=== PATIENT | female | born 1945 | race Caucasian/White ===

== ENCOUNTER 2023-01-09 11:03 | Inpatient (IN) | payer OTHER, BC ==
[~2023-01-09] VITALS: Ht 149.9 cm; Wt 63.5 kg
--- NOTE | 2023-01-09 11:03 | NUR ---
BIBA TAKEN TO BED 2
[2023-01-09 11:14] VITALS: BP 140/103
[2023-01-09] MEDS ORDERED: methylPREDNISolone SS 125 MG/2 ML VIAL IVP ONE (11:55)
[2023-01-09] MEDS ORDERED: ALBUTEROL 0.083% 2.5 MG/3 ML NEBU INH ONE ×2 (11:55→14:45)
[2023-01-09] MEDS ORDERED: IPRATROPIUM 0.02% 0.5 MG/2.5 ML NEBU INH ONE (11:55)
[2023-01-09 12:52] LABS: BASOPHILS % (AUTO) 0.1 % (0.0-2.0); EOSINOPHILS % (AUTO) 0.3 % (0.0-4.0); HEMATOCRIT 40.1 % (36-48); HEMOGLOBIN 13.4 g/dL (12.0-16.0); LYMPHOCYTES # (AUTO) 1.3 K/uL (2.5-16.5); LYMPHOCYTES % (AUTO) 8.7 % (20.5-51.1); MEAN CORPUSCULAR HEMOGLOBIN 31 pg (27-31); MEAN CORPUSCULAR HGB CONC 33 g/dL (33-37); MEAN CORPUSCULAR VOLUME 93.1 fL (80-94); MONOCYTES # (AUTO) 0.9 K/uL (0.8-1.0); MONOCYTES % (AUTO) 5.7 % (1.7-9.3); NEUTROPHILS # (AUTO) 12.9 K/uL (1.8-7.7); NEUTROPHILS % (AUTO) 85.2 % (42.2-75.2); PLATELET COUNT (AUTO) 298 K/uL (140-450); RED BLOOD CELL COUNT(AUTO) 4.31 MIL/uL (4.20-5.40); RED CELL DISTRIBUTION WIDTH 15.2 % (11.6-13.7); WHITE BLOOD COUNT (AUTO) 15.1 K/uL (4.8-10.8)
[2023-01-09 13:25] LABS: ALBUMIN 3.4 g/dL (3.4-5.0); ANION GAP 9.8 (8-16); ASPARTATE AMINOTRANSFERASE 8 U/L (15-37); CARBON DIOXIDE 31.5 mmol/L (21-32); CHLORIDE 96 mmol/L (98-107); CREATININE 1.1 mg/dL (0.6-1.3); GLUCOSE 126 mg/dL (74-106); POTASSIUM 4.3 mmol/L (3.5-5.1); SODIUM SERUM 133 mmol/L (136-145); TOTAL BILIRUBIN 0.8 mg/dL (0.0-1.0); UREA NITROGEN, BLOOD 39 mg/dL (7-18)
[2023-01-09 14:01] LABS: PROTHROMBIN TIME 10.4 secs (10.8-13.4)
[2023-01-09] MEDS ORDERED: NACL 0.9% 1,000 ML IV ONE ×3 (14:05→19:20)
--- NOTE | 2023-01-09 14:15 | NUR ---
PT MOVED TO ER BED 4
--- NOTE | 2023-01-09 14:55 | NUR ---
PT REPOSITIONED FOR COMFORT. WARM BLANKET AND SOCKS GIVEN TO PT. ALL NEEDS MET.
[2023-01-09] MEDS ORDERED: LORazepam 2 MG/ML VIAL IVP PRN (15:00)
[2023-01-09] MEDS ORDERED: MORPHINE SULFATE 2 MG/ML SYR IVP PRN (15:00)
[2023-01-09] MEDS ORDERED: MAG SULF 2000 MG/WATER PREMIX 50 ML IV PRN (15:00)
[2023-01-09] MEDS ORDERED: ACETAMINOPHEN 325 MG TAB PO PRN (15:00)
[2023-01-09] MEDS ORDERED: POTASSIUM CHLORIDE 10 MEQ TABER PO PRN (15:00)
[2023-01-09] MEDS ORDERED: DOCUSATE SODIUM 100 MG GELCAP PO PRN (15:00)
[2023-01-09] MEDS ORDERED: ONDANSETRON 4 MG/2 ML VIAL IVP PRN (15:00)
[2023-01-09] MEDS ORDERED: ZOLPIDEM 10 MG TAB PO PRN (15:00)
[2023-01-09] MEDS ORDERED: MORP-23 PO (15:45)
[2023-01-09] MEDS ORDERED: AMLO-3 PO (15:45)
[2023-01-09] MEDS ORDERED: SENN-74 PO (15:45)
[2023-01-09] MEDS ORDERED: OXYB-118 PO (15:45)
[2023-01-09] MEDS ORDERED: IRBE75TA9 PO (15:45)
[2023-01-09] MEDS ORDERED: DONE10TA37 PO (15:45)
[2023-01-09] MEDS ORDERED: PANT40EC56 PO (15:45)
[2023-01-09] MEDS ORDERED: GABA-636 PO (15:45)
[2023-01-09] MEDS ORDERED: ALBU3SOL83 NEB (15:45)
[2023-01-09] MEDS ORDERED: ROSU20TA32 PO (15:45)
[2023-01-09] MEDS ORDERED: ROFL250T3 PO (15:45)
[2023-01-09] MEDS ORDERED: BISO5TAB30 PO (15:45)
[2023-01-09] MEDS ORDERED: CARV6.252 PO (15:45)
[2023-01-09] MEDS ORDERED: TRAZ150T36 PO (15:45)
[2023-01-09] MEDS ORDERED: FLUT1BLS3 INH (15:45)
[2023-01-09] MEDS ORDERED: CITA-71 PO (15:45)
[2023-01-09] MEDS ORDERED: HYDR-3004 PO (15:45)
--- NOTE | 2023-01-09 16:37 | NUR ---
RESTING IN BED, ASLEEP, TOLERATING LOW FOWLERS. WAS MOVED CLOSER TO NURSING STATION, DAUGHTER RAJESH [phone] SAYS PT .
[2023-01-09 19:17] LABS: APPEARANCE,URINE CLEAR (CLEAR); BILIRUBIN,URINE NEGATIVE (NEGATIVE); BLOOD, URINE NEGATIVE (NEGATIVE); COLOR,URINE YELLOW (YELLOW); LEUKOCYTE ESTERASE ,URINE NEGATIVE (NEGATIVE); NITRITE, URINE NEGATIVE (NEGATIVE); UGLUCOSE 3+ (NEGATIVE)
--- NOTE | 2023-01-09 19:40 | NUR ---
Patient resting in bed, A/Ox4, chest rise and fall symmetrical, no c/o pain or s/s of distress.
[2023-01-09] MEDS ORDERED: PIPERACILLIN/TAZOBACTAM 3.375 GM VIAL IV ONE (20:01)
[2023-01-09] MEDS: PIPERACILLIN/TAZOBACTAM 3.375 GM in DEXTROSE 5% 50 ML IV SCH (20:06)
[2023-01-09] MEDS: methylPREDNISolone SS 40 MG/ML VIAL IVP SCH (20:07)
[2023-01-09] MEDS: BLOOD GLUCOSE MONITORING 1 DEV DEV FS SCH (20:41)
[2023-01-09] MEDS: INSULIN LISPRO SLIDING SCALE 100 UNITS/ML VIAL SUBQ PRN (20:45)
--- NOTE | 2023-01-09 20:59 | NUR ---
Patient will be admitted to care of Mitchell MCCLOUD. Admited to Telemetry. Will go to room 121B. Belongings list completed. Report to Mitchell MCCLOUD. Mitchell MCCLOUD verbalized understanding of report, no further questions.
[2023-01-09] MEDS ORDERED: PIPERACILLIN/TAZOBACTAM 3.375 GM in DEXTROSE 5% 50 ML IV SCH (21:00)
[2023-01-09] MEDS ORDERED: methylPREDNISolone SS 40 MG in WATER STERILE 1 ML IV SCH (21:00)
[2023-01-09] MEDS ORDERED: DEXTROSE 50% 50 ML SYR IVP PRN (21:00)
[2023-01-09 21:10] VITALS: BP 121/51
--- NOTE | 2023-01-09 21:10 | NUR ---
RECEIVED PATIENT FROM ED, PATIENT IS ALERT AND ORIENTED, ABLE TO AMBULATE FROM GURNEY TO BED WITH MINIMUM ASSIST. PATIENT ON O2 @2LPM NC. INITIAL ASSESSMENT DONE. MRSA SWAB DONE. STAFF ORIENTED PATIENT TO ROOM SETTING, USE OF CALL LIGHT.
[2023-01-10] VITALS: BP 135/57
--- NOTE | 2023-01-10 00:10 | NUR ---
VITALS T 98.2, P 64, BP 135/57, RESP 18 AND O2 SATS 95% ON 2LPM NC. PATIENT IS AWAKE, DENIES PAIN, NO SOB NOTED. CALL LIGHT WITHIN REACH.
[2023-01-10 04:00] VITALS: BP 125/61
[2023-01-10] MEDS: methylPREDNISolone SS 40 MG/ML VIAL IVP SCH ×2 (04:44→12:45)
[2023-01-10] MEDS: PIPERACILLIN/TAZOBACTAM 3.375 GM in DEXTROSE 5% 50 ML IV SCH ×2 (04:48→12:42)
--- NOTE | 2023-01-10 04:48 | NUR ---
SCHEDULED MEDICATIONS GIVEN ORDERED. PATIENT IS AWAKE, PATIENT DENIES SOB, DENIES PAIN. CALL LIGHT WITHIN REACH.
[2023-01-10 05:57] LABS: HEMATOCRIT 36.5 % (36-48); HEMOGLOBIN 12.3 g/dL (12.0-16.0); LYMPHOCYTES # (AUTO) 0.6 K/uL (2.5-16.5); LYMPHOCYTES % (AUTO) 6.2 % (20.5-51.1); MEAN CORPUSCULAR HEMOGLOBIN 32 pg (27-31); MEAN CORPUSCULAR HGB CONC 34 g/dL (33-37); MEAN CORPUSCULAR VOLUME 93.8 fL (80-94); MONOCYTES # (AUTO) 0.3 K/uL (0.8-1.0); NEUTROPHILS # (AUTO) 9.1 K/uL (1.8-7.7); NEUTROPHILS % (AUTO) 90.8 % (42.2-75.2); PLATELET COUNT (AUTO) 245 K/uL (140-450); RED BLOOD CELL COUNT(AUTO) 3.89 MIL/uL (4.20-5.40); RED CELL DISTRIBUTION WIDTH 15.3 % (11.6-13.7)
[2023-01-10 06:09] LABS: ANION GAP 10.8 (8-16); CHLORIDE 102 mmol/L (98-107); GLUCOSE 154 mg/dL (74-106); POTASSIUM 4.8 mmol/L (3.5-5.1); SODIUM SERUM 137 mmol/L (136-145); UREA NITROGEN, BLOOD 36 mg/dL (7-18)
[2023-01-10] MEDS: BLOOD GLUCOSE MONITORING 1 DEV DEV FS SCH ×3 (06:31→16:45)
[2023-01-10] MEDS: INSULIN LISPRO SLIDING SCALE 100 UNITS/ML VIAL SUBQ PRN ×2 (06:32→12:01)
--- NOTE | 2023-01-10 07:27 | NUR ---
ENDORSED PATIENT TO DAY NURSE FOR CONTINUITY OF CARE. PATIENT IN STABLE CONDITION. NEEDS MET THROUGHOUT THE SHIFT.
[2023-01-10 08:00] VITALS: BP 137/73
[2023-01-10] MEDS: ALBUTEROL 0.083% 2.5 MG/3 ML NEBU INH PRN ×2 (08:10→14:40)
--- NOTE | 2023-01-10 09:40 | NUR ---
PATIENT HAS BEEN SCREENED AND CATEGORIZED MODERATE NUTRITION RISK. PATIENT WILL BE SEEN WITHIN 3-5 DAYS OF ADMISSION. REVIEWED BY YVETTE MENDOZA RD
[2023-01-10 12:00] VITALS: BP 132/71
--- NOTE | 2023-01-10 15:46 | NUR ---
AROUND 0900 PATIENT'S DAUGHTER CALLED AND ASKED NURSE FOR PATIENT'S VITAL, AND TREATMENT PLAN. THEN AROUND 1000, DAUGHTER [facility] AND REQUESTING ON-CALL MD INFORMATION; THEREFORE, PATIENT'S PCP CAN CALL MD FOR PATIENT'S UPDATE STATUS. AROUND 1400, PATIENT'S DAUGHTER REQUEST ROOM CHANGE BECAUSE 121A/ROOMMATE'S ANXIETY VERY HIGH AND SHOUT. AROUND 1500, PATIENT'S DAUGHTER REQUESTING FOR NEW SET OF VITAL AND FOUND THAT PATIENT'S BP IS 147/69, PULSE 63. PATIENT'S DAUGHTER REQUESTING TO TALK THERMOMETER TESTER REGARDING TO NO BP MEDICATION ISSUE AND ANGARY THAT SHE DID NOT GET TO MEET ON-CALL DOCTOR. NURSE CALL HOUSE AND TRYING TO GET HELP TO HAVE PATIENT'S HOME MEDICATION RECONCILIATION DONE. 1545, DAUGHTER, ADORE ([phone]) ALREADY ARRANGE TRANSPORTATION TO MOTHER'S HELPER PATIENT BETWEEN [address] [facility]. AMA DOCUMENTATION SIGNED.
[2023-01-10 16:00] VITALS: BP 132/71
--- NOTE | 2023-01-10 16:46 | NUR ---
[facility] IS HERE TO BACK LINE COOK PATIENT FOR [facility]. PER DAUGHTER THAT PATIENT WAS DISCHARGE FROM [facility] THE DAY BEFORE SHE PRESENT TO [facility] ER FOR FLU WITH HX OF PULMONAL EMBOLISM FOR HYPOTENSION.
== END 2023-01-10 16:50 | disposition left against medical advice (07) | DRG 871 ==
LOC: MED 11:03 → MTU 14:58 → MMU 01-10 14:30
PROVIDERS: ADMIT Family Medicine; ATTEND Family Medicine
DX: A41.9 Sepsis, unspecified organism (principal); J18.9 Pneumonia, unspecified organism; R65.21 Severe sepsis with septic shock; N17.0 Acute kidney failure with tubular necrosis; J44.1 Chronic obstructive pulmonary disease with (acute) exacerbation; J81.1 Chronic pulmonary edema; J90 Pleural effusion, not elsewhere classified; E87.1 Hypo-osmolality and hyponatremia; J44.0 Chronic obstructive pulmonary disease with (acute) lower respiratory infection; M79.7 Fibromyalgia; Z20.822 Contact with and (suspected) exposure to COVID-19; R06.03 Acute respiratory distress; E11.9 Type 2 diabetes mellitus without complications; I50.9 Heart failure, unspecified; I11.0 Hypertensive heart disease with heart failure
CPT/HCPCS: 36415; 71045; 80048; 80053; 81003; 82948; 83605; 83735; 83880; 84484; 85025; 85610; 85730; 87040; 87081; 87086; 93005; 94640; 96361; 96374; 99285; J2270; J2405; J2543; J2920; J2930; J7060; J7613; J7644; Q0092